=== PATIENT | female | born 1975 | race Caucasian/White ===

== ENCOUNTER 2018-07-07 08:12 | Emergency (ER) | payer OTHER ==
[~2018-07-07] VITALS: Ht 172.7 cm; Wt 81.6 kg
[2018-07-07] MEDS ORDERED: MOTRIN600 MG PO (10:23)
[2018-07-07] MEDS ORDERED: FLEXERIL10 MG PO (10:23)
[2018-07-07 10:48] VITALS: BP 122/86
== END 2018-07-07 10:45 | disposition home or self-care (01) ==
LOC: EME 08:12
DX: S00.93XA Contusion of unspecified part of head, initial encounter (principal); S16.1XXA Strain of muscle, fascia and tendon at neck level, initial encounter; M25.511 Pain in right shoulder; R20.0 Anesthesia of skin; H92.02 Otalgia, left ear; V49.40XA Driver injured in collision with unspecified motor vehicles in traffic accident, initial encounter
CPT/HCPCS: 72040; 73030; 99281; 99284